=== PATIENT | male | born 1950 | race Caucasian/White ===

== ENCOUNTER 2018-10-16 10:47 | Day surgery (SDC) | payer MEDICARE, OTHER ==
[~2018-10-16 10:47] MED LIST: CEFAZOLIN 2 Gram 2 GM/50 ML BAG IVPB ONE; CELECOXIB 100 MG CAPSULE PO ONE; FAMOTIDINE 20MG TABLET PO ONE; MECLIZINE 25 MG TABLET PO ONE; METOCLOPRAMIDE 10 MG TABLET PO ONE; VANCOMYCIN 1GM/200ML PREMIX 1 GM/200 ML PIGGYBACK IVPB ONE
[2018-10-16] MEDS ORDERED: ONDANSETRON HCL IV 4 MG/2 ML VIAL IVP ONE (10:48)
[2018-10-16] MEDS ORDERED: DEXAMETHASONE 4 MG/ML 1ML VIAL IVP ONE ×2 (10:48)
[2018-10-16] MEDS ORDERED: EPHEDRINE SULFATE 50 MG/ML ML IV ONE (10:48)
[2018-10-16] MEDS ORDERED: ALBUTEROL HFA 8 GM INHALER INH ONE (10:48)
[2018-10-16] MEDS ORDERED: SEVOFLURANE 250 ML INH ONE (10:48)
[2018-10-16] MEDS ORDERED: GLYCOPYRROLATE 0.2 MG/ML ML IV ONE (10:48)
[2018-10-16] MEDS ORDERED: LIDOCAINE 2% MDV (20MG/ML) 20ML VIAL IV ONE (10:48)
[2018-10-16] MEDS ORDERED: 0.9 % SODIUM CHLORIDE 100ML 100 ML IV ONE (10:48)
[2018-10-16] MEDS ORDERED: ROPIVACAINE HCL (NAROPIN) /PF 5MG/ML 20ML VIAL IV ONE (10:48)
[2018-10-16] MEDS ORDERED: TRANEXAMIC ACID 1,000 MG/10 ML ML IV ONE ×2 (10:48)
[2018-10-16] MEDS ORDERED: PROPOFOL 10 MG/ML VIAL IV ONE (10:48)
[2018-10-16] MEDS ORDERED: MIDAZOLAM HCL 2MG/2ML VIAL IV ONE (10:48)
[2018-10-16] MEDS ORDERED: FENTANYL PF 100MCG/2ML VIAL IV ONE (10:48)
[2018-10-16] MEDS ORDERED: RINGERS SOLUTION,LACTATED 1,000 ML IV ONE (11:30)
[2018-10-16 11:35] LABS: ABO GROUP A; ANTIBODY SCREEN NEGATIVE (NEGATIVE); RH TYPE POSITIVE
[2018-10-16] MEDS ORDERED: BUPIVACAINE 0.5% W/EPI MPF 30 ML VIAL SQ ONE (13:39)
[2018-10-16] MEDS ORDERED: TRAMADOL HCL 50 MG TABLET PO PRN (14:28)
[2018-10-16] MEDS ORDERED: NALOXONE 0.4 MG/1 ML VIAL IVP PRN (14:28)
[2018-10-16] MEDS ORDERED: AL HYDROX/MAG HYDROX 30ML UD PO PRN (14:28)
[2018-10-16] MEDS ORDERED: HYDROCODONE/APAP 10/325 TABLET PO PRN (14:28)
[2018-10-16] MEDS ORDERED: DIPHENHYDRAMINE HCL 25 MG CAPSULE PO PRN (14:28)
[2018-10-16] MEDS ORDERED: HYDROMORPHONE HCL 2 MG/ML VIAL IM PRN (14:28)
[2018-10-16] MEDS ORDERED: BISACODYL 10 MG SUPP RC PRN (14:28)
[2018-10-16] MEDS ORDERED: ONDANSETRON HCL IV 4 MG/2 ML VIAL IVP PRN (14:28)
[2018-10-16] MEDS ORDERED: ACETAMINOPHEN 325 MG TAB PO PRN (14:28)
[2018-10-16] MEDS ORDERED: ACETAMINOPHEN W/ CODEINE 300MG/60MG TABLET PO PRN ×2 (14:28)
[2018-10-16] MEDS ORDERED: ZOLPIDEM TARTRATE 5 MG TABLET PO PRN (14:28)
[2018-10-16] MEDS ORDERED: KETOROLAC 30 MG/ML VIAL IVP PRN ×2 (14:28)
[2018-10-16] MEDS ORDERED: MAGNESIUM HYDROXIDE 30 ML UDC PO PRN (14:28)
[2018-10-16] MEDS ORDERED: FENTANYL PF 100MCG/2ML VIAL IVP PRN ×2 (15:07→15:12)
[2018-10-16] MEDS ORDERED: FENTANYL PF 100MCG/2ML VIAL IVP ONE (15:12)
[2018-10-16] MEDS ORDERED: LORATADINE 10 MG TABLET PO PRN (15:55)
[2018-10-16] MEDS ORDERED: PNEUM 23-VAL ADULT IM ONE (18:34)
[2018-10-16] MEDS ORDERED: RIVAROXABAN 20 MG TABLET PO SCH (20:00)
[2018-10-16] MEDS: POTASSIUM CHLORIDE/D5-0.9%NACL 20 MEQ/1,000 ML BAG IV SCH (20:18)
[2018-10-16] MEDS: DOCUSATE SODIUM 100 MG CAPSULE PO SCH (21:34)
[2018-10-16] MEDS: CEFAZOLIN 2 Gram 2 GM/50 ML BAG IVPB SCH (21:34)
[2018-10-16] MEDS: HYDROCODONE/APAP 10/325 TABLET PO PRN (21:57)
[2018-10-17] MEDS: POTASSIUM CHLORIDE/D5-0.9%NACL 20 MEQ/1,000 ML BAG IV SCH ×3 (01:50→09:15)
[2018-10-17] MEDS: HYDROCODONE/APAP 10/325 TABLET PO PRN ×3 (01:51→10:27)
[2018-10-17] MEDS: CEFAZOLIN 2 Gram 2 GM/50 ML BAG IVPB SCH ×3 (05:51→13:29)
[2018-10-17 06:29] LABS: HEMATOCRIT 46.6 % (42.0-52.0); HEMOGLOBIN 14.9 gm/dl (14.0-18.0)
[2018-10-17 06:44] LABS: BLOOD UREA NITROGEN 20 mg/dL (8-23); CREATININE 1.2 mg/dL (0.7-1.2); EST GLOMERULAR FILTRATION RATE > 60 mL/min; GLUCOSE,RANDOM 175 mg/dL (74-109)
--- NOTE | 2018-10-17 08:00 | Operative Note ---
DATE OF SURGERY: 10/16/2018 PREOPERATIVE DIAGNOSIS: End-stage arthrosis of the right knee. POSTOPERATIVE DIAGNOSIS: End-stage arthrosis of the right knee. OPERATION: Cemented right total knee arthroplasty using [employer] Nephew Dana II components with a size 6 cobalt chrome Gen II femur, a size 5 stemmed tibia baseplate, a 9 mm lipped tibial insert, and a 35 mm all plastic patella. STAFF SURGEON: Jose F Richardson MD ANESTHESIA: Spinal. PREPARATION: Chloraprep. INDIVIDUAL CONSIDERATIONS: None. PROCEDURE: The patient was taken to the operating room, placed supine on the operating room table. He had a successful induction of a spinal anesthetic. The right lower extremity was prepped and draped in the usual fashion. The patient had a midline approach to the knee. Sharp dissection carried down through skin and subcutaneous tissue. Small veins were coagulated with a Bovie. A medial arthrotomy was performed. The patella was everted and the knee was flexed. The patient's knee was basically destroyed. He had exposed bone at all 3 compartments with bone loss especially medially with large marginal osteophytes. Fat pad was resected, ACL was sacrificed, and provisional anterior meniscectomies were performed. The capsule was released from the medial proximal tibia. The initial femoral barge pilot hole was then made freehand. The intramedullary femoral cutting jig was placed. It was cut in 7.0 degrees of valgus and adjusted for rotation and secured with pins for a 10 mm resection. The initial transverse cut was then made. The skin guide was placed in the anterior and posterior barge pilot holes. It was found that a size 6 would be appropriate. The anterior and posterior cuts followed by chamfer cuts were made. Osteophytes removed, and a size 6 trial was placed and found to fit well. The tibia was brought forward, and the remainder of the meniscal remnants removed with a Bovie. The extraarticular tibial cutting jig was placed. It was cut in neutral with a 3-degree AP slope. Care was taken to adjust for rotation and flexion using the extraarticular alignment guide and bony landmarks. It was set for a 9 mm resection keyed off the high lateral side and secured with pins. When cutting the tibia, care was taken to preserve the PCL insertion on the tibia. After removing large osteophytes, and I could fit a size 5 baseplate. It was adjusted for rotation and secured with pins. With a 9 mm lipped trial and femoral trial, there was excellent motion and stability, ligamentous balance, and rotation alignment were thought to be normal. Femoral barge pilot holes were impacted and the tri-flange tibial stamp was impacted, and these trial components were removed. The patient had a thick patella and roughly 9 mm of bone was removed freehand with an oscillating saw. The tourniquet was let down briefly to get bleeders posteriorly and then placed back up again. The knee was then thoroughly irrigated out with pulsatile Betadine and saline to remove any visual or palpable debris. Bony surfaces were then dried. A size 5 stemmed tibia baseplate was cemented into place followed by impaction of the 9 mm lipped tibial insert followed by cementing in the size 6 cobalt chrome femur followed by cementing in the 32 mm patella. The implant surfaces were compressed, excess cement was removed. After the cement had set, there was excellent motion and stability, ligamentous balance, rotation alignment, and patellofemoral tracking were normal although I had to do a very limited lateral release to facilitate that. Tourniquet was let down after irrigation and hemostasis was obtained with a Bovie. The skin, subcu, and periosteum were infiltrated with 30 mL of 0.5% Marcaine with epinephrine. The capsule was then closed with a running #2 quill, subcu was closed in layers with running 0 quill, skin was closed with danae. Then 1 g of tranexamic acid was mixed with 30 mL of saline and injected into the knee through a sterile 18-gauge needle, and a sterile bulky compressive JACKY- type dressing was applied. The patient tolerated the procedure well. Needle and sponge counts were correct. Estimated blood loss was minimal, and he was taken back to recovery in good condition. There were no complications. ROSELIA
[2018-10-17] MEDS: DOCUSATE SODIUM 100 MG CAPSULE PO SCH (09:21)
[2018-10-17] MEDS ORDERED: FERROUS SULFATE 325 MG TAB PO SCH (10:00)
[2018-10-17] MEDS ORDERED: DILTIAZEM 240 MG CAP CR PO SCH (10:00)
[2018-10-17] MEDS ORDERED: ESCITALOPRAM 10 MG TABLET PO SCH (10:00)
[2018-10-17] MEDS ORDERED: ALPRAZOLAM 0.25 MG TABLET PO SCH (10:00)
--- NOTE | 2018-10-17 11:00 | Rehab Evaluation ---
Patient Information - Patient Information Diagnosis: OA R knee Ordered Treatment: OT Evaluate and Treat Status: Initial Evaluation Surgery: Yes (R TKA) Date of Surgery: 10/16/18 Past Medical/Surgical Hx: PAST MEDICAL/SURGICAL HISTORY Past Surgical History RIGHT KNEE SCOPE PMH - Respiratory Hx Respiratory Disorders Yes Hx Pneumonia Yes: 2016 Hx of SOB Yes: AT TIMES PMH - Cardiovascular Hx Cardiovascular Disorders Yes Hx Abnormal EKG Yes Hx Deep Vein Thrombosis Yes: LE'S LAST ONE Hx Edema Yes: IN THE PAST Hx Irregular Heartbeat Yes: A FIB HX OF PT STATES CONVERTED WITHIOT CARDIOVERSION Exercise Tolerance Fair PMH - Neuro Hx Neurological Disorders No PMH - GI Hx Gastrointestinal Disorders No PMH - Hx Genitourinary Disorders No PMH - Endocrine Hx Endocrine Disorders No PMH - Musculoskeletal Hx Musculoskeletal Disorders Yes Hx Arthritis Yes: RIGHT KNEE PMH - Psych Hx Psychiatric Problems Yes Hx Anxiety Yes Hx Depression Yes PMH - Hematology/Oncology Hx Hematology/Oncology Yes Disorders Hx Bruising Yes: ON XARELTO Hx Clotting Problems Yes: HX DVT Premorbid Status: Detail (Prior to Sx, Pt was indep with all ADLs and functional mobility. Pt lives with his girlfriend in a farmhouse with 2 steps to enter and a hand-rail on the R. His bed/bath are on the main level. His bathroom is equipped with a walk-in shower, shower chair, and standard height toilet. He has a FWW and a 4WW.) Precautions: [place], Fall, Other (WBAT R LE) - Time With Patient Total Time Spent With Patient (Min): 27 (1 eval, 1 ADL) Treatment Procedures: Detail (OT eval: low complexity) Subjective Information - Subjective Information Per Patient (Ok to see per SHA Moore. Pt agreeable to OT eval and Tx. Girlfriend present end of session.) Objective Data - Pain Pain Present: Yes Pain Scale Used: Numeric (1 - 10) (6/10 R knee - Teresa giving pain meds at bedside) - Mental Status Patient Orientation: Oriented x3 - Visual Perception Appears within normal limits for therapeutic activities - ROM Within normal limits - Strength/Tone Within normal limits - Coordination Appears within normal limits for therapeutic activities - Bed Mobility Independent (supine >< EOB) - Transfers Independent (sit >< stand from low surfaces to FWW without safety concerns.) - Balance Balance Sitting: Good Balance Standing: Fair (Fair+, SBA during standing pant mgmt and functional TFs with FWW, Pt reports he is shaky d/t receiving anxiety meds later than normal this date) - Sensation Intact - Gait Detail (Functional mobility within bedroom with FWW and SBA d/t shakiness as Pt reports his anxiety meds have not kicked in yet.) - ADL's/IADL's Detail (Pt dons/doffs socks at EOB - demos SOB and increased effort for both feet while maintaining SpO2 >92%, HR 70. OT educated Pt on use of sock aide and car bracer to don/doff socks - Pt practices with good follow thru and purchases car bracer, sock aide, and long-handled shoe horn. OT educated Pt on modified techniques for kitchen and bathroom safety at home - Pt verbalizes understanding.) Therapy Assessment - Therapy Assessment Detail (Pt demos safety and MOD I with LB dressing and verbalizes safe technique for home tasks with good safety awareness. Light SBA during functional mobility, however Pt reports this is baseline and he has increased shakiness d/t anxiety meds not yet kicked in. Pt appears safe for home DC with girlfriend assist as needed.) Patient Education - Patient Education Teaching Topic: Equipment Use Response: Return Demonstration, Verbalize Understanding Teaching Method: Discussion, Demonstration Teaching Recipient: Patient Barriers To Learning: None Problem List - Problem List Occupational Therapy Problem List: Detail (No further OT needs identified.) Goals - Goals Occupational Therapy Goals: No further OT needs/goals identified. Prognosis - Prognosis Good Plan - Plan Occupational Therapy Plan: No further OT needs/goals identified. DC IP OT.
--- NOTE | 2018-10-17 11:22 | Rehab Evaluation ---
Patient Information - Patient Information Diagnosis: OA R knee Ordered Treatment: PT Evaluate and Treat Status: Initial Evaluation Surgery: Yes (R TKA) Date of Surgery: 10/16/18 Past Medical/Surgical Hx: PAST MEDICAL/SURGICAL HISTORY Past Surgical History RIGHT KNEE SCOPE PMH - Respiratory Hx Respiratory Disorders Yes Hx Pneumonia Yes: 2016 Hx of SOB Yes: AT TIMES PMH - Cardiovascular Hx Cardiovascular Disorders Yes Hx Abnormal EKG Yes Hx Deep Vein Thrombosis Yes: LE'S LAST ONE Hx Edema Yes: IN THE PAST Hx Irregular Heartbeat Yes: A FIB HX OF PT STATES CONVERTED WITHIOT CARDIOVERSION Exercise Tolerance Fair PMH - Neuro Hx Neurological Disorders No PMH - GI Hx Gastrointestinal Disorders No PMH - Hx Genitourinary Disorders No PMH - Endocrine Hx Endocrine Disorders No PMH - Musculoskeletal Hx Musculoskeletal Disorders Yes Hx Arthritis Yes: RIGHT KNEE PMH - Psych Hx Psychiatric Problems Yes Hx Anxiety Yes Hx Depression Yes PMH - Hematology/Oncology Hx Hematology/Oncology Yes Disorders Hx Bruising Yes: ON XARELTO Hx Clotting Problems Yes: HX DVT Premorbid Status: Detail (The patient was independent with all mobility prior to surgery.) Social History: Detail (The patient lives with significant other in a 2 story house with 2 steps at the enterance and one handrail. The patient will not be using the second floor immediately after surgery. The bathroom is equipped with a tub/shower combination, shower bench and a standard height toilet . No grab bars are present in the bathroom. The patient has a front wheeled walker .) Precautions: [place], Fall, Other (WBAT on the R LE.) - Time With Patient Total Time Spent With Patient (Min): 30 Treatment Procedures: Detail (Initial Evaluation, low complexity, gait training.) Subjective Information - Subjective Information Per Patient (The patient had complaints of R knee pain level 7/8 using 0-10 pain scale.) Objective Data - Mental Status Patient Orientation: Oriented x3 - Visual Perception Appears within normal limits for therapeutic activities - ROM Not within normal limits (The patient's R knee AROM is limited s/p surgery. All other AROM is WNL.) - Strength/Tone Not within normal limits (The patient's R LE strength was not tested s/p surgery however the patient's strength was functional. The patient's L LE strength was WFL.) - Bed Mobility Independent (The patient was independent with supine to and from sit transfer.) - Transfers Independent (The patient was independent with sit to and from stand transfer.) - Balance Balance Sitting: Good Balance Standing: Good - Sensation Intact - Gait Detail (The patient ambulated with front wheeled walker with supervision for safety WBAT on the R LE a distance of 100 feet x 1. Supervision for safety is recommended due to unsteadiness with gait at times. The patient required occasional verbal cues not to place walker too far in front. The patient's girlfriend was notified of supervision and verbal cueing requirements. The patient ambulated on stairs with supervision for safety using proper technique with use of railing and folded walker.) Therapy Assessment - Therapy Assessment Detail (The patient was independent with bed mobility, transfers and required supervision for safety with ambulation on levels and stairs. (Significant other was aware of supervison requirements). The patient has met all inpatient PT goals and is discharged from inpatient PT.) Patient Education - Patient Education Teaching Topic: Exercise/Activity (The patient completed TKA HEP which included: seated heelslides, ankle pumps, quad sets, hamstring sets, gluteal sets and SLR.) Response: Return Demonstration Teaching Method: Discussion, Handout Teaching Recipient: Patient Barriers To Learning: Age Related Problem List - Problem List Physical Therapy Problem List: Detail (Decreased R knee AROM and strength s/p surgery.) Goals - Goals Physical Therapy Goals: The patient has met all inpatient PT goals and is discharged from inpatient PT. Plan - Plan Physical Therapy Plan: The patient is discharged from inpatient PT and is to receive Home PT.
== END 2018-10-17 12:35 | disposition home health service (06) ==
LOC: SUR 10:47 → MEDSURG 15:54 → SUR 10-17 12:35
PROVIDERS: ATTEND Orthopaedic Surgery
DX: M17.11 Unilateral primary osteoarthritis, right knee (principal); I48.91 Unspecified atrial fibrillation; Z79.01 Long term (current) use of anticoagulants; J44.9 Chronic obstructive pulmonary disease, unspecified; Z86.718 Personal history of other venous thrombosis and embolism
CPT/HCPCS: 76942; 80048; 85014; 85018; 86850; 86900; 86901; 90686; 90732; 94760; 94761; C1776; J1885; J2405; J3370; J3480; J7120

== ENCOUNTER 2018-10-22 11:50 | Emergency (ER) | payer MEDICARE, OTHER ==
[2018-10-22] MEDS ORDERED: HYDROMORPHONE HCL 2 MG/ML VIAL IVP ONE (13:17)
[2018-10-22] MEDS ORDERED: ONDANSETRON HCL IV 4 MG/2 ML VIAL IVP ONE (13:17)
--- NOTE | 2018-10-22 13:20 | Emergency Department Record ---
History of Present Illness - General Chief complaint: Lower Extremity Pain Stated complaint: KNEE PAIN POST SURGERY Time Seen by Provider: 10/22/18 13:11 Source: Patient Mode of Arrival: Ambulatory Limitations: No limitations - History of Present Illness Initial comments: pt had a knee replacement last week by dr donnelly and comes in for increasing pain and swelling. MD Complaint: Extremity pain, Extremity swelling Onset/Timin -: Week(s) Location: Right, Knee, Lower Leg, Thigh History of Same: No Radiation: Proximal, Distal Severity scale (1-10): >10 Quality: Sharp, Stabbing Consistency: Constant Improves with: Nothing Worsens with: Nothing - Related Data Home Medications Medication Instructions Recorded Confirmed Last Taken Cetirizine HCl [Zyrtec] 10 mg PO DAILY 10/22/18 10/22/18 Unknown Diltiazem HCl [Cardizem Cd] 240 mg PO DAILY 10/22/18 10/22/18 10/22/18 Hydrocodone/Acetaminophen [[place] 1 each PO ASDIR 10/22/18 10/22/18 10/22/18 5-325 Tablet] Ranitidine HCl [Zantac] 150 mg PO DAILY 10/22/18 10/22/18 Unknown Rivaroxaban [Xarelto] 20 mg PO DAILY 10/22/18 10/22/18 10/22/18 Previous Rx's Medication Instructions Recorded Ciprofloxacin 500 mg PO BID #20 [facility]..rec 10/22/18 Allergies Allergy/AdvReac Type Severity Reaction Status Date / Time No Known Drug Allergies Allergy Verified 10/22/18 11:57 Travel Screening - Travel/Exposure Within Last 30 Days Have you traveled within the last 30 days?: No Review of Systems Reviewed: No additional complaints except as noted below Constitutional: Reports: As per HPI. Denies: Chills, Fever, Malaise, Night sweats, Weakness, Weight change Eyes: Reports: As per HPI. Denies: Eye discharge, Eye pain, Photophobia, Vision change ENT: Reports: As per HPI. Denies: Congestion, Dental pain, Ear pain, Epistaxis, Hearing loss, Throat pain Respiratory: Reports: As per HPI. Denies: Cough, Dyspnea, Hemoptysis, Stridor, Wheezes Cardiovascular: Reports: As per HPI. Denies: Arrhythmia, Chest pain, Dyspnea on exertion, Edema, Murmurs, Orthopnea, Palpitations, Paroxysmal nocturnal dyspnea, Rheumatic Fever, Syncope Endocrine: Reports: As per HPI. Denies: Fatigue, Heat or cold intolerance, Polydipsia, Polyuria Gastrointestinal: Reports: As per HPI. Denies: Abdominal pain, Constipation, Diarrhea, Hematemesis, Hematochezia, Melena, Nausea, Vomiting Genitourinary: Reports: As per HPI. Denies: Dysuria, Frequency, Hematuria, Incontinence, Retention, Testicular pain, Testicular mass, Urgency Musculoskeletal: Reports: As per HPI. Denies: Arthralgia, Back pain, Gout, Joint swelling, Myalgia, Neck pain Skin: Reports: As per HPI. Denies: Bruising, Change in color, Change in hair/nails, Lesions, Pruritus, Rash Neurological: Reports: As per HPI. Denies: Abnormal gait, Confusion, Headache, Numbness, Paresthesias, Seizure, Tingling, Tremors, Vertigo, Weakness Psychiatric: Reports: As per HPI. Denies: Anxiety, Auditory hallucinations, Depression, Homicidal thoughts, Suicidal thoughts, Visual hallucinations Hematological/Lymphatic: Reports: As per HPI. Denies: Anemia, Blood Clots, Easy bleeding, Easy bruising, Swollen glands Past Medical History - SOCIAL HISTORY Smoking Status: Current every day smoker Alcohol Use: None Drug Use: None - RESPIRATORY Hx Respiratory Disorders: Yes Hx Pneumonia: Yes (2016) - CARDIOVASCULAR Hx Cardio Disorders: Yes Hx Abnormal EKG: Yes Hx Deep Vein Thrombosis: Yes (LE'S LAST ONE ) Hx Edema: Yes (IN THE PAST) Hx Irregular Heartbeat: Yes (A FIB HX OF PT STATES CONVERTED WITHIOT CARDIO VERSION) - NEURO Hx Neuro Disorders: No - GI Hx GI Disorders: No - Hx Genitourinary Disorders: No - ENDOCRINE Hx Endocrine Disorders: No - MUSCULOSKELETAL Hx Musculoskeletal Disorders: Yes Hx Arthritis: Yes (RIGHT KNEE) - PSYCH Hx Psych Problems: Yes Hx Anxiety: Yes Hx Depression: Yes - HEMATOLOGY/ONCOLOGY Hx Hematology/Oncology Disorders: Yes Hx Bruising: Yes (ON XARELTO) Hx Clotting Problems: Yes (HX DVT) Family Medical History Any Significant Family History?: Yes Hx Heart Disease: Father Physical Exam - General General Appearance: Alert, Oriented x3, Cooperative, Mild distress - Head Head exam: Normal inspection - Eye Eye exam: Normal appearance, PERRL, EOMI Pupils: Normal accommodation - ENT ENT exam: Normal exam, Mucous membranes moist, Normal external ear exam, Normal orophraynx Ear exam: Normal external inspection. negative: External canal tenderness Nasal Exam: Normal inspection. negative: Discharge, Sinus tenderness Mouth exam: Normal external inspection, Tongue normal Teeth exam: Normal inspection. negative: Dental caries Throat exam: Normal inspection. negative: Tonsillar erythema, Tonsillar exudate - Neck Neck exam: Normal inspection, Full ROM. negative: Tenderness - Respiratory Respiratory exam: Normal lung sounds bilaterally. negative: Respiratory distress - Cardiovascular Cardiovascular Exam: Regular rate, Normal rhythm, Normal heart sounds - GI/Abdominal GI/Abdominal exam: Soft, Normal bowel sounds. negative: Tenderness - Rectal Rectal exam: Deferred - exam: Deferred - Extremities Extremities exam: Normal capillary refill, Pedal edema, Tenderness. negative: Full ROM Image of Full Body: 1 - swelling, erythema, oozing, pulses present 2 - incision - Back Back exam: Reports: Normal inspection, Full ROM. Denies: Muscle spasm, Rash noted, Tenderness - Neurological Neurological exam: Alert, CN II-XII intact, Normal gait, Oriented X3 - Psychiatric Psychiatric exam: Normal affect, Normal mood - Skin Skin exam: Dry, Intact, Normal color, Warm Course Vital Signs 10/22/18 11:51 Temperature 97.7 F Pulse Rate 84 Respiratory 20 Rate Blood Pressure 138/75 Pulse Ox 94 L - Reevaluation(s) Reevaluation #1: 10/22/18 16:59 dr dominguez came to see the pt in the dept and examined leg. dr dominguez stated if doppler is neg [facility] Decision Making - Lab Data Result diagrams: 10/22/18 12:00 10/22/18 12:00 Disposition Disposition: Discharge Clinical Impression: Cellulitis Qualifiers: Site of cellulitis: extremity Site of cellulitis of extremity: lower extremity Laterality: right Qualified Code(s): L03.115 - Cellulitis of right lower limb Disposition: Home, Self-Care Condition: (1) Good Instructions: Cellulitis (ED) Additional Instructions: keep leg elevated. rest. follow up with dr donnelly in 1 day. stop xarelto for a day. Prescriptions: Ciprofloxacin 500 mg PO BID #20 [facility]..rec Forms: Patient Portal Access Quality - Quality Measures Quality Measures: N/A - Blood Pressure Screening Does Patient Have Any of the Following: No Blood Pressure Classification: Pre-Hypertensive BP Reading Systolic Measurement: 138 Diastolic Measurement: 75 Screening for High Blood Pressure: < Pre-Hypertensive BP, F/U Documented > [G8950] Pre-Hypertensive Follow-up Interventions: Follow-up with rescreen every year.
[2018-10-22 13:33] LABS: HEMOGLOBIN 12.9 gm/dl (14.0-18.0); MEAN CORPUSCULAR HGB CONC 33.1 g/dl (32-36); MEAN PLATELET VOLUME 9.3 fl (7.4-10.4); PLATELET COUNT 336 K/uL (130-400); RED BLOOD COUNT 4.02 M/uL (4.40-5.70); WHITE BLOOD COUNT W/O DIFF 7.4 K/uL (4.2-12.2)
[2018-10-22 13:48] LABS: BLOOD UREA NITROGEN 16 mg/dL (8-23)
[2018-10-22 13:49] LABS: CREATININE 0.6 mg/dL (0.7-1.2); EST GLOMERULAR FILTRATION RATE > 60 mL/min
[2018-10-22 13:51] LABS: GLUCOSE,RANDOM 112 mg/dL (74-109)
[2018-10-22 13:52] LABS: ABSOLUTE NEUTROPHIL COUNT 5.64
[2018-10-22] MEDS ORDERED: CIPROFLOXACIN LACTATE/D5W 400 MG/200 ML BAG IVPB ONE (15:23)
--- NOTE | 2018-10-23 21:14 | US VENOUS DOPPLER REPORT ---
EXAM: ULTRASOUND VENOUS DOPPLER LOWER EXT RT HISTORY: KNEE PAIN POST SURGERY. TECHNIQUE: Routine scanning of the deep veins of the right lower extremity was performed. Images were obtained both with cordero-scale and color Doppler. Compression was also performed. FINDINGS: The external iliac, common femoral, greater saphenous, femoral, popliteal, posterior tibial, and peroneal veins are patent. No evidence for DVT. The contralateral left external iliac and common femoral vein also were patent. Note is made of mild subcutaneous edema throughout the right lower extremity in this patient status post recent total knee arthroplasty. IMPRESSION: NO EVIDENCE FOR DVT IN THE RIGHT LOWER EXTREMITY. JOB NUMBER: [id number] [facility]
== END 2018-10-22 17:26 | disposition home or self-care (01) ==
LOC: ER 11:50
DX: T81.49XA Infection following a procedure, other surgical site, initial encounter (principal); L03.115 Cellulitis of right lower limb; M25.562 Pain in left knee; F17.210 Nicotine dependence, cigarettes, uncomplicated; Z86.718 Personal history of other venous thrombosis and embolism; Z79.01 Long term (current) use of anticoagulants; Z96.651 Presence of right artificial knee joint
CPT/HCPCS: 80048; 85027; 96365; 96375; 99284; J2405